=== PATIENT | male | born 2000 | race Caucasian/White ===

== ENCOUNTER 2021-01-26 06:35 | Emergency (ER) | payer OTHER ==
[2021-01-26] MEDS ORDERED: ONDANSETRON 4 MG (ODT) TAB ONE (08:07)
--- NOTE | 2021-01-26 08:33 | RAD REPORT ---
EXAM DESCRIPTION: RAD - Chest Single View - 01/26/2021 8:24 am CLINICAL HISTORY: COUGH COMPARISON: No comparisons FINDINGS: No evidence of edema or pneumonia. The heart size is within normal limits.No acute osseous abnormality. No significant pleural effusions or pneumothorax. IMPRESSION: No acute cardiopulmonary disease.
--- NOTE | 2021-01-26 09:36 | EDPHYS ---
Physician Documentation [facility] Name: Brent Ocampo Age: 21 yrs Sex: Male : 2000 Arrival Date: 01/26/2021 Time: 06:41 Bed DX1 Private MD: ED Physician Luiz Chakraborty HPI: 01/26 07:37 This 21 yrs old Male presents to ER via Ambulatory with complaints of rn Headache, Cough, Chest Pain, Vomiting. 07:37 The patient or guardian reports cough. Onset: The symptoms/episode began/occurred 3 rn day(s) ago. Severity of symptoms: At their worst the symptoms were mild, in the emergency department the symptoms are unchanged. Modifying factors: The symptoms are alleviated by nothing, the symptoms are aggravated by nothing. Associated signs and symptoms: Pertinent positives: sore throat, vomiting, headache. The patient has not experienced similar symptoms in the past. The patient has not recently seen a physician. Patient reports cough, congestion, headache, fatigue, vomiting for 3 days or so. Reports multiple sick contacts who were diagnosed with Covid. Patient vaccinated. Non-smoker, no chronic medical problems. Denies shortness of breath.. Historical: - Allergies: 07:11 No Known Allergies; ss - Home Meds: 07:11 None [Active]; ss - PMHx: 07:11 None; ss - PSHx: 07:11 None; ss - Immunization history:: Adult Immunizations up to date. - Social history:: Smoking status: Patient denies any tobacco usage or history of. - Family history:: not pertinent. - Hospitalizations: : No recent hospitalization is reported. ROS: 07:37 Constitutional: Positive for chills Eyes: Negative for injury, pain, redness, and learning coordinator, ENT: Positive for congestion and sore throat Neck: Negative for injury, swelling, Cardiovascular: Negative for chest pain, palpitations, and edema, Respiratory: Positive for cough, negative for shortness of breath Abdomen/GI: Positive for nausea and vomiting, negative for abdominal pain : Negative for injury, bleeding, discharge, and swelling, MS/Extremity: Negative for injury and deformity, Skin: Negative for injury, rash, and discoloration, Neuro: Positive for headache and generalized weakness. No focal neurological complaints 07:37 All other systems are negative. Exam: 07:37 Constitutional: This is a well developed, well nourished patient who is awake, alert, rn and in no acute distress. Head/Face: Normocephalic, atraumatic. Eyes: Pupils equal round and reactive to light, extra-ocular motions intact. Lids and lashes normal. Conjunctiva and sclera are non-icteric and not injected. Cornea within normal limits. Periorbital areas with no swelling, redness, or edema. ENT: No stridor Neck: Trachea midline, no thyromegaly, + non-tender cervical lymphadenopathy. Supple, full range of motion without nuchal rigidity, or vertebral point tenderness. No Meningismus. Cardiovascular: Regular rate and rhythm. No pulse deficits. Respiratory: No increased work of breathing, no retractions or nasal flaring. Abdomen/GI: Soft, non-tender Skin: Warm, dry MS/ Extremity: Pulses equal, no cyanosis. Neuro: Awake and alert, GCS 15 Vital Signs: 07:09 BP 153 / 95; Pulse 86; Resp 15; Temp 97.8(TE); Pulse Ox 98% on R/A; Weight 86.18 kg; ss Height 5 ft. 11 in. (180.34 cm); Pain 0/10; 07:09 Body Mass Index 26.50 (86.18 kg, 180.34 cm) ss MDM: 07:41 Patient medically screened. rn 07:48 Data interpreted: school bus monitor: Pulse oximetry: on room air is 98 %. Interpretation: rn normal. 08:33 Test interpretation: by ED physician or midlevel provider: plain radiologic studies, rn CXR neg for acute infiltrate or pneumothorax. 09:35 Differential Diagnosis: Bronchitis Upper Respiratory Infection Sinusitis Allergic rn Rhinitis Viral Syndrome Pneumonia Other Covid. Data reviewed: vital signs, nurses notes, lab test result(s), radiologic studies, plain films, and as a result, I will discharge patient. Counseling: I had a detailed discussion with the patient and/or guardian regarding: the historical points, exam findings, and any diagnostic results supporting the discharge/admit diagnosis, lab results, radiology results, the need for outpatient follow up, to return to the emergency department if symptoms worsen or persist or if there are any questions or concerns that arise at home. Special discussion: I discussed with the patient/guardian in detail that at this point there is no indication for admission to the hospital. It is understood, however, that if the symptoms persist or worsen the patient needs to return immediately for re-evaluation. 01/26 07:20 Order name: Strep; Complete Time: 08:32 rn 01/26 07:19 Order name: XRAY Chest (1 view); Complete Time: 08:35 rn 01/26 08:37 Order name: Throat Culture EDMS 01/26 09:22 Order name: SARS-COV-2 RT PCR; Complete Time: 09:35 EDMS Administered Medications: 07:53 Drug: Zofran (Ondansetron) 4 mg Route: PO; ss 08:15 Follow up: Response: No adverse reaction; Nausea is decreased ss Disposition Summary: 01/26/21 09:36 Discharge Ordered Location: Home rn Problem: new rn Symptoms: have improved rn Condition: Stable rn Diagnosis - Cough rn - Acute upper respiratory infection, unspecified rn Followup: rn - With: Private Physician - When: As needed - Reason: Recheck today's complaints, Re-evaluation by your physician Discharge Instructions: - Discharge Summary Sheet rn - Upper Respiratory Infection, Adult rn - Viral Respiratory Infection rn - Cough, Adult rn Forms: - Medication Reconciliation Form rn - Thank You Letter rn - Antibiotic internet media planner - Prescription Opioid Use rn Signatures: Dispatcher [employer] EDUT Luiz Chakraborty MD MD rn Smirch, Shelby, RN RN ss Corrections: (The following items were deleted from the chart) : 07:19 [email or web address] ordered. EDUT EDUT
--- NOTE | 2021-01-26 09:36 | ER ---
Nurse's Notes [facility] Name: Brent Ocampo Age: 21 yrs Sex: Male : 2000 Arrival Date: 01/26/2021 Time: 06:41 Bed DX1 Private MD: Diagnosis: Cough;Acute upper respiratory infection, unspecified Presentation: 01/26 07:09 Chief complaint: Patient states: headache, intermittent nausea and pain when coughing ss at times x 2 days. PT reports he is up to date with his COVID vaccinations, but at his place of employment, a lot of people are testing positive for COVID. Coronavirus screen: Client presents with at least one sign or symptom that may indicate coronavirus-19. Ebola Screen: Patient denies exposure to infectious person. Patient denies travel to an Ebola-affected area in the 21 days before illness onset. Initial Sepsis Screen: Does the patient meet any 2 criteria? No. Patient's initial sepsis screen is negative. Does the patient have a suspected source of infection? No. Patient's initial sepsis screen is negative. Risk Assessment: Do you want to hurt yourself or someone else? Patient reports no desire to harm self or others. Onset of symptoms was January 24, 2021. 07:09 Method Of Arrival: Ambulatory ss 07:09 Acuity: EMIL 4 ss Historical: - Allergies: 07:11 No Known Allergies; ss - Home Meds: 07:11 None [Active]; ss - PMHx: 07:11 None; ss - PSHx: 07:11 None; ss - Immunization history:: Adult Immunizations up to date. - Social history:: Smoking status: Patient denies any tobacco usage or history of. - Family history:: not pertinent. - Hospitalizations: : No recent hospitalization is reported. Screenin:00 Abuse screen: Denies threats or abuse. Denies injuries from another. Nutritional ss screening: No deficits noted. Tuberculosis screening: Never had TB. Fall Risk None identified. Assessment: 08:00 General: Behavior is calm, cooperative, Reports feeling ill for 1-2 days. Pain: ss Complains of pain in chest Pain currently is 0 out of 10 on a pain scale. Quality of pain is described as only when coughing. Neuro: Level of Consciousness is awake, alert, obeys commands, Oriented to person, place, time, situation. Cardiovascular: Capillary refill < 3 seconds is brisk in bilateral fingers Patient's skin is warm and dry. Respiratory: Airway is patent Respiratory effort is even, unlabored, Respiratory pattern is regular, symmetrical. GI: Reports nausea. EENT: Nares are clear Oral mucosa is moist. Derm: Skin is intact, is healthy with good turgor, Skin is dry, Skin is pink, warm \T\ dry. normal. Musculoskeletal: Circulation, motion, and sensation intact. Range of motion: intact in all extremities, Swelling absent. Vital Signs: 07:09 BP 153 / 95; Pulse 86; Resp 15; Temp 97.8(TE); Pulse Ox 98% on R/A; Weight 86.18 kg; ss Height 5 ft. 11 in. (180.34 cm); Pain 0/10; 07:09 Body Mass Index 26.50 (86.18 kg, 180.34 cm) ED Course: 06:41 Patient arrived in ED. bp1 07:11 Triage completed. ss 07:11 Arm band placed on right wrist. 07:16 Sree Rivas PA is PHCP. jr8 07:16 Luiz Chakraborty MD is Attending Physician. jr8 07:53 Maria Elena Marsh RN is Primary Nurse. ss 08:00 Patient has correct armband on for positive identification. Bed in low position. Call ss light in reach. 08:24 XRAY Chest (1 view) In Process Unspecified. EDMS 10:13 No provider procedures requiring assistance completed. Patient did not have IV access ss during this emergency room visit. Administered Medications: 07:53 Drug: Zofran (Ondansetron) 4 mg Route: PO; ss 08:15 Follow up: Response: No adverse reaction; Nausea is decreased ss Outcome: 09:36 Discharge ordered by . rn 10:13 Discharged to home ambulatory. ss 10:13 Condition: good 10:13 Discharge instructions given to patient, Instructed on discharge instructions, follow up and referral plans. Demonstrated understanding of instructions, follow-up care. 10:14 Patient left the ED. ss Signatures: Dispatcher [employer] EDMS Luiz Chakraborty MD MD rn Smirch, Shelby, RN RN Sree Rivas PA PA jr8 Gilda Abreu bp1
[2021-01-26 10:25] VITALS: BP 153/95; TEMP 97.8; O2SAT 98
== END 2021-01-26 10:14 | disposition home or self-care (01) ==
LOC: ER 06:35
DX: J06.9 Acute upper respiratory infection, unspecified (principal); Z20.822 Contact with and (suspected) exposure to COVID-19
CPT/HCPCS: 87070; 87081; 71045; 99283; U0003

== ENCOUNTER 2021-03-29 00:50 | Emergency (ER) | payer OTHER ==
--- NOTE | 2021-03-29 01:40 | ER ---
Nurse's Notes [facility] Name: Brent Ocampo Age: 21 yrs Sex: Male : 2000 Arrival Date: 03/29/2021 Time: : Bed 6 Private MD: Diagnosis: Fracture of clavicle Presentation: 03/29 01:19 Chief complaint: Patient states: patient presents to the ED c/o right clavicle pain. 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 patient has deformity to right clavicle with increased pain. Coronavirus screen: Vaccine status: Patient reports receiving the 2nd dose of the covid vaccine. At this time, the client does not indicate any symptoms associated with coronavirus-19. Ebola Screen: Patient negative for fever greater than or equal to 101.5 degrees Fahrenheit, and additional compatible Ebola Virus Disease symptoms Patient denies exposure to infectious person. Patient denies travel to an Ebola-affected area in the 21 days before illness onset. No symptoms or risks identified at this time. Initial Sepsis Screen: Does the patient meet any 2 criteria? No. Patient's initial sepsis screen is negative. Does the patient have a suspected source of infection? No. Patient's initial sepsis screen is negative. Risk Assessment: Do you want to hurt yourself or someone else? Patient reports no desire to harm self or others. Onset of symptoms was March 29, 2021. 01:19 Method Of Arrival: Ambulatory ms4 01:19 Acuity: EMIL 4 ms4 Triage Assessment: :22 General: Appears in no apparent distress. Behavior is calm, cooperative, appropriate ms4 for age. Pain: Complains of pain in right clavicle. Musculoskeletal: Circulation, motion, and sensation intact. Capillary refill Bony deformity noted of right clavicle Swelling present in right clavicle Tenderness present in right clavicle Reports pain in right clavicle. Injury Description: Deformity sustained to right clavicle. Historical: - Allergies: : No Known Allergies; ms4 - Home Meds: : None [Active]; ms4 - PMHx: : None; ms4 - Immunization history:: Adult Immunizations up to date, Client reports receiving the 2nd dose of the Covid vaccine, Last tetanus immunization: up to date. - Social history:: Smoking status: unknown. Screenin:23 Abuse screen: Denies threats or abuse. Denies injuries from another. Nutritional ms4 screening: No deficits noted. Tuberculosis screening: No symptoms or risk factors identified. Fall Risk None identified. Assessment: :23 Reassessment: Patient appears in no apparent distress at this time. No changes from ms4 previously documented assessment. Patient and/or family updated on plan of care and expected duration. Pain level reassessed. Patient is alert, oriented x 3, equal unlabored respirations, skin warm/dry/pink. General: Appears in no apparent distress. Behavior is calm, cooperative, appropriate for age. Pain: Complains of pain in right clavicle. Neuro: No deficits noted. Cardiovascular: No deficits noted. Respiratory: No deficits noted. Musculoskeletal: Bony deformity noted of right clavicle. Vital Signs: 01:19 BP 141 / 84; Pulse 95; Resp 18; Temp 98.3(O); Pulse Ox 98% on R/A; Weight 90.72 kg; ms4 Height 6 ft. 1 in. (185.42 cm); Pain 6/10; 01:19 Body Mass Index 26.39 (90.72 kg, 185.42 cm) ms4 ED Course: 01:01 Patient arrived in ED. cf2 01:02 Shannon Lawrence FNP-C is [facility]. kb 01:02 Pierre Ralph MD is Attending Physician. kb 01:21 Triage completed. ms4 01:23 Arm band placed on left wrist. ms4 01:24 No provider procedures requiring assistance completed. ms4 01:27 Shoulder Right (2 View) XRAY In Process Unspecified. EDMS 01:40 Clavicle Right XRAY Sent. ms4 01:48 Patient has correct armband on for positive identification. ms4 01:48 Patient did not have IV access during this emergency room visit. ms4 01:56 Clavicle Right XRAY In Process Unspecified. EDMS Administered Medications: No medications were administered Outcome: 01:38 Discharge ordered by . kb 01:47 Discharged to home ambulatory. ms4 01:47 Condition: stable 01:47 Discharge instructions given to patient, Instructed on discharge instructions, Demonstrated understanding of instructions, follow-up care, medications, Prescriptions given X 1. 01:48 Patient left the ED. ms4 Signatures: Dispatcher [employer] EDMS Shannon Lawrence FNP-C FNP-Ckb Sheyla Wiggins cf2 Lesa Penaloza, RN RN ms4
--- NOTE | 2021-03-29 01:40 | EDPHYS ---
Physician Documentation [facility] Name: Brent Ocampo Age: 21 yrs Sex: Male : 2000 Arrival Date: 03/29/2021 Time: 01: Bed 6 Private MD: ED Physician Pierre Ralph HPI: 03/29 01:07 This 21 yrs old Male presents to ER via Unassigned with complaints of kb Shoulder Injury, POSSIBLY DISLOCATED. 01:07 The patient or guardian complains of pain, that is acute. right clavicle. Context: The kb problem was sustained outdoors, resulted from a fall, while walking, The patient experiences decreased range of motion, The patient reports no obvious deformity. Onset: The symptoms/episode began/occurred just prior to arrival. Modifying factors: the symptoms are alleviated by nothing. The symptoms are aggravated by movement. Associated signs and symptoms: The patient has no apparent associated signs or symptoms. Severity of symptoms: At their worst the symptoms were moderate, in the emergency department the symptoms are unchanged. Treatment prior to arrival includes: no previous treatment. The patient has not experienced similar symptoms in the past. The patient has not recently seen a physician. Pt reports he tripped and fell onto curb. reports pain to right clavicle and decreased rom of right shoulder. Historical: - Allergies: : No Known Allergies; ms4 - Home Meds: : None [Active]; ms4 - PMHx: : None; ms4 - Immunization history:: Adult Immunizations up to date, Client reports receiving the 2nd dose of the Covid vaccine, Last tetanus immunization: up to date. - Social history:: Smoking status: unknown. ROS: 01:07 Constitutional: Negative for fever, chills, and weight loss. kb 01:07 MS/extremity: Positive for injury or acute deformity, pain, tenderness, of the right clavicle. 01:07 All other systems are negative. Exam: 01:07 Constitutional: This is a well developed, well nourished patient who is awake, alert, kb and in no acute distress. Head/Face: Normocephalic, atraumatic. ENT: Moist Mucous membranes Respiratory: Respirations even and unlabored. No increased work of breathing, no retractions or nasal flaring. Skin: Warm, dry with normal turgor. Normal color. Neuro: Awake and alert, GCS 15, oriented to person, place, time, and situation. Moves all extremities. Normal gait. Psych: Awake, alert, with orientation to person, place and time. Behavior, mood, and affect are within normal limits. 01:07 Musculoskeletal/extremity: Extremities: grossly normal except: noted in the right clavicle: pain, tenderness, ROM: limited active range of motion due to pain, in the right arm, Circulation is intact in all extremities. Sensation intact. Vital Signs: 01:19 BP 141 / 84; Pulse 95; Resp 18; Temp 98.3(O); Pulse Ox 98% on R/A; Weight 90.72 kg; ms4 Height 6 ft. 1 in. (185.42 cm); Pain 6/10; 01:19 Body Mass Index 26.39 (90.72 kg, 185.42 cm) ms4 MDM: 01:03 Patient medically screened. kb 01:06 Data reviewed: vital signs, nurses notes. Data interpreted: Pulse oximetry: on room air kb is 100 %. Interpretation: normal. 01:38 Counseling: I had a detailed discussion with the patient and/or guardian regarding: the kb historical points, exam findings, and any diagnostic results supporting the discharge/admit diagnosis, radiology results, the need for outpatient follow up, a orthopedic surgeon, to return to the emergency department if symptoms worsen or persist or if there are any questions or concerns that arise at home. 03/29 01:06 Order name: Shoulder Right (2 View) XRAY 03/29 01:26 Order name: Clavicle Right XRAY 03/29 01:28 Order name: Sling; Complete Time: 01:40 kb Administered Medications: No medications were administered Disposition: 07:37 Co-signature as Attending Physician, Pierre Ralph MD. [email or web address] Disposition Summary: 03/29/21 01:38 Discharge Ordered Location: Home Condition: Stable kb Diagnosis - Fracture of clavicle kb Followup: kb - With: Emergency Department - When: As needed - Reason: Worsening of condition Followup: kb - With: Private Physician - When: 2 - 3 days - Reason: Recheck today's complaints, Continuance of care, Re-evaluation by your physician Discharge Instructions: - Discharge Summary Sheet kb - Clavicle Fracture, [id number] kb Forms: - Medication Reconciliation Form kb - Work release form kb - Thank You Letter kb - Antibiotic Education kb - Prescription Opioid Use kb Prescriptions: - Diclofenac Sodium 75 mg Oral tablet,delayed release (DR/EC) - take 1 tablet by ORAL route 2 times per day As needed; 30 tablet; Refills: 0, kb Product Selection Permitted Signatures: Dispatcher [employer] Shannon Jacobo, Pierre Thakur MD MD 7 Lesa Penaloza RN RN ms4
[2021-03-29 01:52] VITALS: BP 141/84; TEMP 98.3; O2SAT 98
--- NOTE | 2021-03-29 11:42 | RAD REPORT ---
EXAM DESCRIPTION: RAD - Clavicle Right - 03/29/2021 1:56 am CLINICAL HISTORY: PAIN COMPARISON: No comparisons FINDINGS: Fracture of the midshaft of the right clavicle is seen with mild displacement and angulati on. No dislocation seen.
--- NOTE | 2021-03-29 11:44 | RAD REPORT ---
EXAM DESCRIPTION: RAD - Shoulder Right 2 View - 03/29/2021 1:27 am CLINICAL HISTORY: PAIN COMPARISON: No comparisons FINDINGS: Mildly angulated fracture of the midshaft of the right clavicle is present. No dislocation is evident.
== END 2021-03-29 01:48 | disposition home or self-care (01) ==
LOC: ER 00:50
DX: S42.011A Anterior displaced fracture of sternal end of right clavicle, initial encounter for closed fracture (principal); W01.198A Fall on same level from slipping, tripping and stumbling with subsequent striking against other object, initial encounter; Y93.01 Activity, walking, marching and hiking; Y92.480 Sidewalk as the place of occurrence of the external cause
CPT/HCPCS: 99283

== ENCOUNTER 2022-07-23 22:07 | Emergency (ER) | payer SELFPAY ==
[2022-07-23] MEDS ORDERED: IBUPROFEN 400 MG TAB ONE (23:11)
--- NOTE | 2022-07-24 00:33 | EDPHYS ---
Physician Documentation [facility] Name: Brent Ocampo Age: 22 yrs Sex: Male : 2000 Arrival Date: 07/23/2022 Time: 22:10 Bed 8 Private MD: ED Physician Minerva Crum HPI: 07/23 22:30 This 22 yrs old Male presents to ER via Ambulatory with complaints of Knee Injury. cp 22:30 The patient presents with an injury, pain, that is acute, swelling, tenderness. The cp complaints affect the medial aspect left lower knee. 22:30 Context: Patient reports he was skating rink when child that was unable to stop ran cp into him. Caused him to fall onto left side and injure left knee. Only c/o pain to left knee and swelling. Onset: The symptoms/episode began/occurred today. Associated signs and symptoms: The patient has no apparent associated signs or symptoms. Treatment prior to arrival includes: no previous treatment. Historical: - Allergies: 23:11 No Known Allergies; tw5 - Home Meds: 23:11 None [Active]; tw5 - PMHx: 23:11 None; tw5 - PSHx: 23:11 None; tw5 - Immunization history:: Flu vaccine is not up to date. - Social history:: Smoking status: Patient denies any tobacco usage or history of. ROS: 22:35 Constitutional: Negative for body aches, chills, fever, poor PO intake. cp 22:35 Eyes: Negative for injury, pain, redness, and discharge. cp 22:35 Neck: Negative for pain with movement, pain at rest, stiffness. 22:35 Cardiovascular: Negative for chest pain, palpitations. 22:35 Respiratory: Negative for cough, shortness of breath, wheezing. 22:35 Abdomen/GI: Negative for abdominal pain, nausea, vomiting, and diarrhea. 22:35 Back: Negative for pain at rest, pain with movement. 22:35 MS/extremity: Positive for ecchymosis, pain, swelling, tenderness, of the medial and anterior aspect left lower knee, Negative for decreased range of motion, deformity, paresthesias. 22:35 Neuro: Negative for altered mental status, headache, syncope, weakness. 22:35 All other systems are negative. Exam: 22:40 Constitutional: The patient appears in no acute distress, alert, awake, non-toxic, well cp developed, well nourished. 22:40 Head/Face: Normocephalic, atraumatic. cp 22:40 Neck: ROM/movement: is normal, is supple, without pain, no range of motions limitations. 22:40 Chest/axilla: Inspection: normal, Palpation: is normal, no crepitus, no tenderness. 22:40 Cardiovascular: Rate: normal, Rhythm: regular. 22:40 Respiratory: the patient does not display signs of respiratory distress, Respirations: normal, no use of accessory muscles, no retractions, labored breathing, is not present, Breath sounds: are clear throughout, no decreased breath sounds, no stridor, no wheezing. 22:40 Abdomen/GI: Inspection: abdomen appears normal, Palpation: abdomen is soft and non-tender, in all quadrants. 22:40 Back: pain, is absent, ROM is normal. 22:40 Musculoskeletal/extremity: Extremities: noted in the left knee: hematoma and swelling noted anterior and medial aspect left knee below patella, mild ecchymosis, tenderness to palpation, no gross joint effusion noted, full passive ROM, no laxity of ligaments appreciated. Vital Signs: 23:12 BP 124 / 85; Pulse 92; Resp 18; Temp 98.5; Pulse Ox 100% ; Weight 86.18 kg; Height 6 tw5 ft. 1 in. (185.42 cm); Pain 4/10; 18 00:59 BP 109 / 73; Pulse 73; Resp 18 S; Pulse Ox 98% on R/A; as6 07/23 23:12 Body Mass Index 25.07 (86.18 kg, 185.42 cm) tw5 MDM: 07/23 22:49 Patient medically screened. cp 23:00 Differential diagnosis: dislocation, closed fracture, ligament injury, knee effusion, cp dislocation. 07/24 00:31 Data reviewed: vital signs, nurses notes, radiologic studies, plain films. cp 00:31 Consideration of Admission/Observation Escalation of care including cp admission/observation considered. I considered the following discharge prescriptions or medication management in the emergency department Medications were administered in the Emergency Department. See MAR. Independent interpretation of the following test(s) in the Emergency Department X-Ray: My interpretation is left knee negative for fracture. Test considered but Not performed: CT: left knee. Counseling: I had a detailed discussion with the patient and/or guardian regarding: the historical points, exam findings, and any diagnostic results supporting the discharge/admit diagnosis, radiology results, the need for outpatient follow up, a orthopedic surgeon, to return to the emergency department if symptoms worsen or persist or if there are any questions or concerns that arise at home. Response to treatment: the patient's symptoms have mildly improved after treatment, and as a result, I will discharge patient. 07/23 22:22 Order name: XRAY Knee LEFT 3 view cp 07/24 00:31 Order name: Henry wrap-joint; Complete Time: 00:58 cp 07/24 00:31 Order name: Crutches; Complete Time: 00:58 cp Administered Medications: 07/23 23:11 Drug: Ibuprofen 800 mg Route: PO; tw5 07/24 00:59 Follow up: Response: No adverse reaction as6 Disposition Summary: 07/24/22 00:32 Discharge Ordered Location: Home cp Problem: new cp Symptoms: have improved cp Condition: Stable cp Diagnosis - Pain in left knee cp Followup: cp - With: Orlando Carrero MD - When: 2 - 3 days - Reason: Recheck today's complaints Discharge Instructions: - Discharge Summary Sheet cp - Elastic Bandage and RICE Therapy cp - How to Use a Knee Brace cp - Acute Knee Pain, Adult cp - Form - Excuse from Work, School, or Physical Activity cp Forms: - Medication Reconciliation Form cp - Thank You Letter cp - Antibiotic Education cp - Prescription Opioid Use cp Prescriptions: - Ibuprofen 800 mg Oral Tablet - take 1 tablet by ORAL route every 8 hours As needed take with food; 30 tablet; cp Refills: 0, Product Selection Permitted Addendum: 07/25/2022 06:28 I reviewed the patient's care provided by the Advanced Practice Provider and agree with s d2 the diagnosis and treatment plan. Signatures: Dispatcher [employer] EDSudheer Zee PA PA cp Wood, Tiffany tw5 Minerva Crum MD MD sd2 Ji Israel RN as6
--- NOTE | 2022-07-24 00:33 | ER ---
Nurse's Notes [facility] Name: Brent Ocampo Age: 22 yrs Sex: Male : 2000 Arrival Date: 07/23/2022 Time: 22:10 Bed 8 Private MD: Diagnosis: Pain in left knee Presentation: 07/23 23:12 Chief complaint: Patient states: "I was [place] [employer] [place] helping out a radha and a tw5 kid didn't know how to stop and ran into me. I fell on my left side. At first I thought I was fine, but the more I walked around the more knee started to hurt.". Coronavirus screen: Vaccine status: Patient reports receiving the 2nd dose of the covid vaccine. Ebola Screen: Patient negative for fever greater than or equal to 101.5 degrees Fahrenheit, and additional compatible Ebola Virus Disease symptoms Patient denies exposure to infectious person. Patient denies travel to an Ebola-affected area in the 21 days before illness onset. Initial Sepsis Screen: Does the patient meet any 2 criteria? No. Patient's initial sepsis screen is negative. Does the patient have a suspected source of infection? No. Patient's initial sepsis screen is negative. Risk Assessment: Do you want to hurt yourself or someone else? Patient reports no desire to harm self or others. Onset of symptoms was July 23, 2022 at 21:30. 23:12 Method Of Arrival: Ambulatory tw5 23:12 Acuity: EMIL 4 tw5 Triage Assessment: 23:12 General: Appears in no apparent distress. Behavior is appropriate for age. Pain: tw5 Complains of pain in left knee Pain currently is 4 out of 10 on a pain scale. Musculoskeletal: Range of motion: intact in all extremities. Historical: - Allergies: 23:11 No Known Allergies; tw5 - Home Meds: 23:11 None [Active]; tw5 - PMHx: 23:11 None; tw5 - PSHx: 23:11 None; tw5 - Immunization history:: Flu vaccine is not up to date. - Social history:: Smoking status: Patient denies any tobacco usage or history of. Screenin:14 [facility] ED Fall Risk Assessment (Adult) History of falling in the last 3 months, tw5 including since admission Yes- single mechanical fall (1 pt). Abuse screen: Denies threats or abuse. Denies injuries from another. Nutritional screening: No deficits noted. Tuberculosis screening: No symptoms or risk factors identified. Assessment: 23:14 General: Appears in no apparent distress. Behavior is calm, cooperative, appropriate tw5 for age. Derm: Skin is intact, is healthy with good turgor. Musculoskeletal: Range of motion: intact in all extremities. Vital Signs: 23:12 BP 124 / 85; Pulse 92; Resp 18; Temp 98.5; Pulse Ox 100% ; Weight 86.18 kg; Height 6 tw5 ft. 1 in. (185.42 cm); Pain 4/10; 07/24 00:59 BP 109 / 73; Pulse 73; Resp 18 S; Pulse Ox 98% on R/A; as6 07/23 23:12 Body Mass Index 25.07 (86.18 kg, 185.42 cm) tw5 ED Course: 07/23 22:10 Patient arrived in ED. jj6 22:14 Sudheer Pickens PA is PHCP. cp 22:15 Minerva Crum MD is Attending Physician. cp 22:52 XRAY Knee LEFT 3 view In Process Unspecified. EDMS 23:05 Debra Branch is Primary Nurse. tw5 23:12 Arm band placed on. tw5 23:14 Triage completed. tw5 23:15 Patient has correct armband on for positive identification. Call light in reach. Side tw5 rails up X 1. Pulse ox on. NIBP on. 18 00:32 Orlando Carrero MD is Referral Physician. cp 00:58 No provider procedures requiring assistance completed. Patient did not have IV access as6 during this emergency room visit. 00:58 Crutch training done. Henry wrap to left knee. as6 Administered Medications: 07/23 23:11 Drug: Ibuprofen 800 mg Route: PO; tw5 07/24 00:59 Follow up: Response: No adverse reaction as6 Medication: 07/23 23:14 VIS not applicable for this client. tw5 Outcome: 07/24 00:32 Discharge ordered by . cp 00:58 Discharged to home ambulatory, with crutches. as6 00:58 Condition: stable 00:58 Discharge instructions given to patient, Instructed on discharge instructions, follow up and referral plans. medication usage, crutch walking, Demonstrated understanding of instructions, follow-up care, medications, wound care, Prescriptions given X 1. 00:59 Patient left the ED. as6 Signatures: Dispatcher [employer] EDMS Sudheer Pickens PA PA cp Wood, Tiffany tw5 Kinsey Carroll jj6 Ji Israel, RN RN as6
[2022-07-24 01:20] VITALS: BP 124/85; TEMP 98.5; O2SAT 100
--- NOTE | 2022-07-26 12:19 | RAD REPORT ---
EXAM DESCRIPTION: RAD - Knee Left 3 View - 07/23/2022 10:48 pm CLINICAL HISTORY: Pain. COMPARISON: None. TECHNIQUE: Three views of the left knee: AP, oblique, and lateral radiographs. FINDINGS: No acute osseous abnormality is identified. Alignment is maintained. No evidence of suprap atellar joint effusion. Anterior knee soft tissue swelling. IMPRESSION: No acute osseous abnormality identified. Electronically signed by: Vilma Virk MD 07/23/2022 10:54 PM ARCHIVIST Due to temporary technical issues with the PACS/Fluency reporting system, reports are being signed by the in house radiologists without review as a courtesy to insure prompt reporting. The interpreting radiologist is fully responsible for the content of the report.
== END 2022-07-24 00:59 | disposition home or self-care (01) ==
LOC: ER 22:07
DX: M25.562 Pain in left knee (principal)
CPT/HCPCS: 99284

== ENCOUNTER 2023-02-06 17:52 | Emergency (ER) | payer SELFPAY ==
--- OUTSIDE RECORDS SUMMARY | 2023-02-06 17:54 | XMS REPORT | Continuity of Care Document ---
:2000 Author Organization [facility] t Address [address] [place] [address] [address] [place] [address] Care Team Providers Name Role Phone Selina Denny Primary Care Physician Mandi SAUNDERS Attending Clinician Unavailable Mandi Becerra Attending Clinician Problems This patient has no known problems. Allergies, Adverse Reactions, Alerts Allergy Allergy Status Severity Reaction(s) Onset Inactive Treating Comm ents Source Name Type Date Date Clinician NO KNOWN Drug Active Univers ALLERGIE Class ity of S [facility] Social History Social Habit Start Date Stop Date Quantity Comments Source History of Passive smoker [facility] tobacco use [facility] Exposure to 2022-09-07 2022-09-17 Not sure [facility] SARS-CoV-2 00:00:00 15:03:00 [facility] (event) [place] Alcohol intake 2022-09-17 2022-09-17 University 00:00:00 00:00:00 [facility] Sex Assigned At [birth year] Universit y of 00:00:00 00:00:00 [facility] Smoking Status Start Date Stop Date Source Never smoked tobacco [facility] Medications Ordered Filled Start Stop Current Ordering Indication Dosage Frequency Signature Comments Components Source Medication Medication Date Date Medication? Clinician (SIG) Name Name ondansetron No 4mg 4 mg, Univ ers (ZOFRAN-ODT 09-17 Oral, ity of ) 21:45: 20:46 ONCE, 1 [place] disintegrat 00 :00 dose, On Medi linette ing tablet Fri Branch 4 mg 09/17/22 at 1645, Routine ondansetron Yes [id number] 4mg Take 1 Univers 4 mg 4-14 tablet by ity of disintegrat 00:00: mouth [place] ing tablet 00 every 8 Medica l (eight) Branch hours as needed for Nausea and Vomiting (N/V). NAPROXEN Yes Take by Univer s (NAPROSYN 6-05 mouth. ity of ORAL) 08:23: [place] [facility] CYCLOBENZAP Yes Take by Uni vers RINE HCL 6-05 mouth. ity of (FLEXERIL 08:23: [place] ORAL) [address] [place] [address] Vital Signs Vital Name Observation Time Observation Value Comments Source Systolic blood 2022-09-17 20:05:00 150 [facility] Diastolic blood 2022-09-17 20:05:00 86 mm[facility] rate 2022-09-17 20:05:00 91 /min [facility] Body temperature 2022-09-17 20:05:00 37.11 Patti [facility] Respiratory rate 2022-09-17 20:05:00 16 /min [facility] Body weight 2022-09-17 20:05:00 81.647 kg [facility] Oxygen saturation in 2022-09-17 20:05:00 100 /min [facility] Arterial blood by [facility] Pulse oximetry Branch Procedures Procedure Date / Time Performed Performing Clinician Sourc e POCT GLUCOSE(AGE 2022-09-17 20:44:00 Mandi Saunders [facility] >30DAYS) Medical Branch POCT GLUCOSE 2022-09-17 20:42:00 Mandi Saunders [place] [facility] [place] (AUTOMATED) [facility] Encounters Start End Encounter Admission Attending Care Care Encounter Source Date/Time Date/Time Type Type Clinicians Facility Department ID 2022-09-17 2022-09-17 Emergency X Mandi SAUNDERS [facility] ERT [id number] Univers 15:05:00 15:59:00 ity [facility] 2022-09-17 2022-09-17 Emergency Mandi Saunders [facility] [id number] Univers 15:05:00 15:59:00 Mansi ANDERSON [id number] i ty smitha ROD [id number] [facility] [id number] [address] Results Test Description Test Time Test Comments Results Result Comments Source POCT GLUCOSE(AGE >30DAYS) 2022-09-17 20:44:00 Test Item Value Reference Range Interpretation Comme nts POCT Glu (age>30days) (test code = 3342) 89 mg/dL 70-110 Lab Interpretation (test code = 90153-3) Normal [facility]2022-09-17 20:42:47 Test Item Value Reference Range Interpretation Comments POCT GLU (test code = 1132153842) 89 mg/dL 70-110 Lab Interpretation (test code = Normal 03061-8) [facility]
--- NOTE | 2023-02-06 18:05 | ER ---
Nurse's Notes [facility] Name: Brent Ocampo Age: 23 yrs Sex: Male : 2000 Arrival Date: 02/06/2023 Time: 17:52 Bed DIS4 Private MD: Diagnosis: Burn of first degree of right lower leg Presentation: 02/06 18:03 Chief complaint: Patient states: burnt his right calf this afternoon. Coronavirus iw screen: At this time, the client does not indicate any symptoms associated with coronavirus-19. Ebola Screen: Patient negative for fever greater than or equal to 101.5 degrees Fahrenheit, and additional compatible Ebola Virus Disease symptoms Patient denies exposure to infectious person. Patient denies travel to an Ebola-affected area in the 21 days before illness onset. No symptoms or risks identified at this time. Initial Sepsis Screen: Does the patient meet any 2 criteria? No. Patient's initial sepsis screen is negative. Does the patient have a suspected source of infection? No. Patient's initial sepsis screen is negative. Risk Assessment: Do you want to hurt yourself or someone else? Patient reports no desire to harm self or others. Onset of symptoms was February 06, 2023. 18:03 Method Of Arrival: Ambulatory iw 18:03 Acuity: EMIL 4 iw Historical: - Allergies: 18:11 No Known Allergies; iw - Immunization history:: Adult Immunizations. - Social history:: Smoking status: . Screenin:13 [facility] ED Fall Risk Assessment (Adult) Score/Fall Risk Level 0 - 2 = Low Risk. Abuse iw screen: Denies threats or abuse. Denies injuries from another. Nutritional screening: No deficits noted. Tuberculosis screening: No symptoms or risk factors identified. Assessment: 18:15 General: Appears in no apparent distress. Behavior is calm, cooperative. Pain: Denies iw pain. Neuro: Level of Consciousness is awake, alert, obeys commands, Oriented to person, place, time, situation, Moves all extremities. Full function. Cardiovascular: Patient's skin is warm and dry. Respiratory: Respiratory effort is even, unlabored, Respiratory pattern is regular, symmetrical. Derm: Skin is healthy with good turgor. Musculoskeletal: Range of motion: intact in all extremities. Vital Signs: 18:10 BP 121 / 78; Pulse 79; Resp 16; Temp 98.2; Pulse Ox 98% on R/A; iw ED Course: 17:56 Patient arrived in ED. ts1 17:57 Shannon Lawrence FNP-C is [facility]. kb 17:57 Navya Maradiaga MD is Attending Physician. kb 18:02 Carlene Valerio, RN is Primary Nurse. iw 18:03 Triage completed. iw 18:30 Arm band placed on. iw 19:13 No provider procedures requiring assistance completed. Patient did not have IV access iw during this emergency room visit. 19:13 Patient has correct armband on for positive identification. Provided Education on: . iw Administered Medications: No medications were administered Medication: 19:13 VIS not applicable for this client. iw Outcome: 18:04 Discharge ordered by . kb 19:14 Discharged to home ambulatory. iw 19:14 Condition: good 19:14 Discharge instructions given to patient, Instructed on discharge instructions, follow up and referral plans. Demonstrated understanding of instructions, follow-up care. 19:14 Patient left the ED. iw Signatures: Shannon Lawrence FNP-C FNP-Carlene Laguna, RN RN iw Kia Pittman, PAS PAS ts1
--- NOTE | 2023-02-06 18:05 | EDPHYS ---
Physician Documentation [facility] Name: Brent Ocampo Age: 23 yrs Sex: Male : 2000 Arrival Date: 02/06/2023 Time: 17:52 Bed DIS4 Private MD: ED Physician Navya Maradiaga HPI: 02/06 18:08 This 23 yrs old Male presents to ER via Ambulatory with complaints of Leg Injury. kb 18:08 at work, is located on the right calf. Onset: The symptoms/episode began/occurred kb today, at 13:00. Burn type and severity: 1st degree:. Associated signs and symptoms: none. The patient did not suffer any apparent inhalation injury, The patient had no loss of consciousness. The patient has not experienced similar symptoms in the past. The patient has not recently seen a physician. Historical: - Allergies: 18:11 No Known Allergies; iw - Immunization history:: Adult Immunizations. - Social history:: Smoking status: . ROS: 18:07 Constitutional: Negative for fever, chills, and weight loss. kb 18:07 Skin: Positive for burn, of the right calf. 18:07 All other systems are negative. Exam: 18:07 Constitutional: This is a well developed, well nourished patient who is awake, alert, kb and in no acute distress. Head/Face: Normocephalic, atraumatic. ENT: Moist Mucous membranes Cardiovascular: Regular rate and rhythm with a normal S1 and S2. No gallops, murmurs, or rubs. No pulse deficits. Respiratory: Respirations even and unlabored. No increased work of breathing. Talking in full sentences MS/ Extremity: Pulses equal, no cyanosis. Neurovascular intact. Full, normal range of motion. Neuro: Awake and alert, GCS 15, oriented to person, place, time, and situation. Moves all extremities. Normal gait. 18:07 Skin: injury, burn(s), 1st degree burn injury covers approximately 1% of the total body surface area, and is located on the right calf. Vital Signs: 18:10 BP 121 / 78; Pulse 79; Resp 16; Temp 98.2; Pulse Ox 98% on R/A; iw MDM: 17:59 Patient medically screened. kb 18:07 Data reviewed: vital signs, nurses notes. kb 18:07 Differential diagnosis: 1st degree cuellar, 2nd degree cuellar, 3rd degree cuellar. kb Counseling: I had a detailed discussion with the patient and/or guardian regarding the historical points, exam findings, and any diagnostic results supporting the discharge/admit diagnosis, the need for outpatient follow up, a family practitioner, to return to the emergency department if symptoms worsen or persist or if there are any questions or concerns that arise at home. Administered Medications: No medications were administered Disposition Summary: 02/06/23 18:04 Discharge Ordered Location: Home kb Condition: Stable kb Diagnosis - Burn of first degree of right lower leg kb Followup: kb - With: Emergency Department - When: As needed - Reason: Worsening of condition Followup: kb - With: Private Physician - When: 2 - 3 days - Reason: Recheck today's complaints, Continuance of care, Re-evaluation by your physician Discharge Instructions: - Discharge Summary Sheet kb - Burn Care, Adult, [id number] kb Forms: - Work release form kb - Medication Reconciliation Form kb - Thank You Letter kb - Antibiotic Education kb - Prescription Opioid Use kb - Patient Portal Instructions kb - Leadership Thank You Letter kb Signatures: Shannon Lawrence FNP-Lilliana PIPER-Carlene Laguna, RN RN iw
[2023-02-06 19:24] VITALS: BP 121/78; TEMP 98.2; O2SAT 98
== END 2023-02-06 19:14 | disposition home or self-care (01) ==
LOC: ER 17:52
DX: T24.131A Burn of first degree of right lower leg, initial encounter (principal)
CPT/HCPCS: 99282

== ENCOUNTER 2023-03-12 07:11 | Emergency (ER) | payer SELFPAY ==
--- OUTSIDE RECORDS SUMMARY | 2023-03-12 07:14 | XMS REPORT | Continuity of Care Document ---
:2000 Author Organization [facility] t Address [address] [place] [address] [address] [place] [address] Care Team Providers Name Role Phone Selina Denny Primary Care Physician Mandi SAUNDERS Attending Clinician Unavailable Mandi Becerra Attending Clinician Problems This patient has no known problems. Allergies, Adverse Reactions, Alerts Allergy Allergy Status Severity Reaction(s) Onset Inactive Treating Comm ents Source Name Type Date Date Clinician NO KNOWN Drug Active Univers ALLERGIE Class ity of S [facility] Social History Social Habit Start Date Stop Date Quantity Comments Source History of Passive smoker [facility] tobacco use [facility] Exposure to 2022-09-07 2022-09-17 Not sure [facility] SARS-CoV-2 00:00:00 15:03:00 [facility] (event) [place] Alcohol intake 2022-09-17 2022-09-17 University 00:00:00 00:00:00 [facility] Sex Assigned At [birth year] Universit y of 00:00:00 00:00:00 [facility] Smoking Status Start Date Stop Date Source Never smoked tobacco [facility] Medications Ordered Filled Start Stop Current Ordering Indication Dosage Frequency Signature Comments Components Source Medication Medication Date Date Medication? Clinician (SIG) Name Name ondansetron No 4mg 4 mg, Univ ers (ZOFRAN-ODT 09-17 Oral, ity of ) 21:45: 20:46 ONCE, 1 [place] disintegrat 00 :00 dose, On Medi linette ing tablet Fri Branch 4 mg 4/14/23 at 1645, Routine ondansetron Yes [id number] 4mg Take 1 Univers 4 mg 4-14 tablet by ity of disintegrat 00:00: mouth [place] ing tablet 00 every 8 Medica l (eight) Branch hours as needed for Nausea and Vomiting (N/V). NAPROXEN Yes Take by Univer s (NAPROSYN 6-05 mouth. ity of ORAL) 08:23: [place] 49 [facility] Branch CYCLOBENZAP Yes Take by Uni vers RINE HCL 6-05 mouth. ity of (FLEXERIL 08:23: [place] ORAL) [address] [place] [address] Vital Signs Vital Name Observation Time Observation Value Comments Source Systolic blood 2022-09-17 20:05:00 150 mm[facility]Hg[facility] Diastolic blood 2022-09-17 20:05:00 86 mm[Hg] [facility] Heart rate 2022-09-17 20:05:00 91 /min [facility] Body temperature 2022-09-17 20:05:00 37.11 Patti [facility] Respiratory rate 2022-09-17 20:05:00 16 /min [facility] Body weight 2022-09-17 20:05:00 81.647 kg [facility] Oxygen saturation in 2022-09-17 20:05:00 100 /min [facility] Arterial blood by [facility] Pulse oximetry Branch Procedures Procedure Date / Time Performed Performing Clinician Sourc e POCT GLUCOSE(AGE 2022-09-17 20:44:00 Mandi Saunders [facility] >30DAYS) Medical Branch POCT GLUCOSE 2022-09-17 20:42:00 Mandi Saunders [facility] [place] (AUTOMATED) [facility] Encounters Start End Encounter Admission Attending Care Care Encounter Source Date/Time Date/Time Type Type Clinicians Facility Department ID 2022-09-17 2022-09-17 Emergency X Mandi SAUNDERS [facility] ERT [id number] Univers 15:05:00 15:59:00 ity [facility] 2022-09-17 2022-09-17 Emergency Mandi Saunders [facility] [id number] Univers 15:05:00 15:59:00 Mansi ANDERSON [id number] i ty smitha ROD [id number] [facility] [id number] [address] Results Test Description Test Time Test Comments Results Result Comments Source POCT GLUCOSE(AGE >30DAYS) 2022-09-17 20:44:00 Test Item Value Reference Range Interpretation Comme nts POCT Glu (age>30days) (test code = 3342) 89 mg/dL 70-110 Lab Interpretation (test code = 12046-8) Normal [facility]2022-09-17 20:42:47 Test Item Value Reference Range Interpretation Comments POCT GLU (test code = 2141830077) 89 mg/dL 70-110 Lab Interpretation (test code = Normal 08235-9) [facility]
--- NOTE | 2023-03-12 07:30 | ER ---
Nurse's Notes [facility] Name: Brent Ocampo Age: 23 yrs Sex: Male : 2000 Arrival Date: 03/12/2023 Time: 07:11 Bed 19 Private MD: Diagnosis: Neck pain Presentation: 03/12 07:24 Chief complaint: Right sided neck pain that radiates to right shoulder x 2 days. Denies hb injury but lifts heavy things at work daily. Coronavirus screen: At this time, the client does not indicate any symptoms associated with coronavirus-19. Ebola Screen: No symptoms or risks identified at this time. Initial Sepsis Screen: Does the patient meet any 2 criteria? No. Patient's initial sepsis screen is negative. Does the patient have a suspected source of infection? No. Patient's initial sepsis screen is negative. Risk Assessment: Do you want to hurt yourself or someone else? Patient reports no desire to harm self or others. Onset of symptoms was March 11, 2023. 07:24 Method Of Arrival: Ambulatory hb 07:24 Acuity: EMIL 4 hb Historical: - Allergies: 07:26 No Known Allergies; hb - Home Meds: 07:26 None [Active]; hb - PMHx: 07:26 None; hb - PSHx: 07:26 None; hb - Immunization history:: Adult Immunizations up to date. - Social history:: Smoking status: Patient denies any tobacco usage or history of. - Family history:: not pertinent. Screenin:30 [facility] ED Fall Risk Assessment (Adult) Score/Fall Risk Level 0 - 2 = Low Risk nj1 Oriented to surroundings, Maintained a safe environment, Hourly rounding (assess needs \T\ fall precautionary measures) done. Abuse screen: Denies threats or abuse. Denies injuries from another. Nutritional screening: No deficits noted. Tuberculosis screening: No symptoms or risk factors identified. Assessment: 07:28 General: Appears in no apparent distress. comfortable, Behavior is calm, cooperative, nj1 appropriate for age. Pain: Complains of pain in right trapezius Pain currently is 6 out of 10 on a pain scale. Alleviated by rest. Neuro: No deficits noted. Cardiovascular: No deficits noted. Respiratory: No deficits noted. Musculoskeletal: Reports pain in right trapezius since 3 days. Vital Signs: 07:24 BP 142 / 83; Pulse 84; Resp 16; Temp 97.9(O); Pulse Ox 99% on R/A; Weight 79.38 kg; hb Height 6 ft. 0 in. ; Pain 6/10; 07:43 BP 135 / 78; Pulse 73; Resp 17; Pulse Ox 99% ; Pain 6/10; nj1 07:58 Pain 4/10; nj1 07:24 Body Mass Index 23.73 (79.38 kg, 182.88 cm) hb 07:24 Pain Scale: Adult hb 07:43 Pain Scale: Adult nj1 07:58 Pain Scale: Adult nj1 ED Course: 07:14 Patient arrived in ED. mr 07:16 Jarred Coon MD is Attending Physician. rt 07:20 Adelaida Strickland, RN is Primary Nurse. nj1 07:26 Triage completed. hb 07:26 Arm band placed on. hb 07:30 Patient has correct armband on for positive identification. Bed in low position. Call nj1 light in reach. Provided Education on: call light, fall precautions. 07:30 No provider procedures requiring assistance completed. Patient did not have IV access nj1 during this emergency room visit. Administered Medications: 07:40 Drug: Ketorolac IM 15 mg IM once Route: IM; Site: right deltoid; nj1 07:58 Follow up: Pain 4/10 Adult; Response: No adverse reaction; Pain is decreased nj1 Medication: 07:30 VIS not applicable for this client. nj1 Outcome: 07:29 Discharge ordered by . rt 07:58 Discharged to home ambulatory, nj1 07:58 Condition: stable 07:58 Discharge instructions given to patient, Instructed on discharge instructions, follow up and referral plans. medication usage, Demonstrated understanding of instructions, follow-up care, medications, Prescriptions given X 1, 07:58 Patient left the ED. nj1 Signatures: Quiana Carter, Reg Reg mr PenalozaterLesli RN RN Jarred Coon MD MD rt Adelaida Strickland RN RN nj1
--- NOTE | 2023-03-12 07:30 | EDPHYS ---
Physician Documentation [facility] Name: Brent Ocampo Age: 23 yrs Sex: Male : 2000 Arrival Date: 03/12/2023 Time: 07:11 Bed 19 Private MD: ED Physician Jarred Coon HPI: 03/12 07:32 This 23 yrs old Male presents to ER via Ambulatory with complaints of Neck pain. rt 07:32 Patient presents to the ED with neck pain. Patient does lift heavy objects at work. rt This been going on for 2 days. Is worse when he sits still, turn side to the right. The pain is localized to the right superior trapezius muscle, denies discrete trauma. Denies other acute complaints at this time, symptoms are mild in severity, aching nature, nonradiating, no other aggravating leaving factors.. Historical: - Allergies: 07:26 No Known Allergies; hb - Home Meds: 07:26 None [Active]; hb - PMHx: 07:26 None; hb - PSHx: 07:26 None; hb - Immunization history:: Adult Immunizations up to date. - Social history:: Smoking status: Patient denies any tobacco usage or history of. - Family history:: not pertinent. ROS: 07:32 Constitutional: Negative for fever, chills, and weight loss, Cardiovascular: Negative rt for chest pain, palpitations, and edema, Respiratory: Negative for shortness of breath, cough, wheezing, and pleuritic chest pain, Abdomen/GI: Negative for abdominal pain, nausea, vomiting, diarrhea, and constipation, Skin: Negative for injury, rash, and discoloration, Neuro: Negative for headache, weakness, numbness, tingling, and seizure, Psych: Negative for depression, anxiety, suicide ideation, homicidal ideation, and hallucinations, 07:32 Neck: Positive for pain with movement, pain at rest, Exam: 07:32 Constitutional: This is a well developed, well nourished patient who is awake, alert, rt and in no acute distress. Head/Face: Normocephalic, atraumatic. Chest/axilla: Normal chest wall appearance and motion. Nontender with no deformity. No lesions are appreciated. Cardiovascular: Regular rate and rhythm with a normal S1 and S2. No gallops, murmurs, or rubs. Normal PMI, no JVD. No pulse deficits. Respiratory: Lungs have equal breath sounds bilaterally, clear to auscultation and percussion. No rales, rhonchi or wheezes noted. No increased work of breathing, no retractions or nasal flaring. Skin: Warm, dry with normal turgor. Normal color with no rashes, no lesions, and no evidence of cellulitis. MS/ Extremity: Pulses equal, no cyanosis. Neurovascular intact. Full, normal range of motion. Neuro: Awake and alert, GCS 15, oriented to person, place, time, and situation. Cranial nerves II-XII grossly intact. Motor strength 5/5 in all extremities. Sensory grossly intact. Cerebellar exam normal. Normal gait. Psych: Awake, alert, with orientation to person, place and time. Behavior, mood, and affect are within normal limits. 07:32 Neck: Tenderness over right superior trapezius muscle, no midline tenderness, forage of motion, no step-offs, Vital Signs: 07:24 BP 142 / 83; Pulse 84; Resp 16; Temp 97.9(O); Pulse Ox 99% on R/A; Weight 79.38 kg; hb Height 6 ft. 0 in. ; Pain 6/10; 07:43 BP 135 / 78; Pulse 73; Resp 17; Pulse Ox 99% ; Pain 6/10; nj1 07:58 Pain 4/10; nj1 07:24 Body Mass Index 23.73 (79.38 kg, 182.88 cm) hb 07:24 Pain Scale: Adult hb 07:43 Pain Scale: Adult nj1 07:58 Pain Scale: Adult nj1 MDM: 07:24 Patient medically screened. rt 07:32 Differential Diagnosis Neck strain, neck spasm. Data reviewed: vital signs, nurses rt notes. I considered the following discharge prescriptions or medication management in the emergency department Medications were administered in the Emergency Department. See MAR. Test considered but Not performed: MRI: No focal neurologic deficits, symptoms most likely muscular in nature, will start with conservative management, patient informed to follow-up for outpatient imaging should his pain persist.. Counseling: I had a detailed discussion with the patient and/or guardian regarding the historical points, exam findings, and any diagnostic results supporting the discharge/admit diagnosis, the need for outpatient follow up. Administered Medications: 07:40 Drug: Ketorolac IM 15 mg IM once Route: IM; Site: right deltoid; nj1 07:58 Follow up: Pain 09/13 Adult; Response: No adverse reaction; Pain is decreased nj1 Disposition Summary: 03/12/23 07:29 Discharge Ordered Notes: Location: Home rt Condition: Stable rt Diagnosis - Neck pain rt Followup: rt - With: Private Physician - When: 5 - 6 days - Reason: Discharge Instructions: - Discharge Summary Sheet hb - Neck Exercises rt Forms: - Work release form hb - Medication Reconciliation Form rt - Thank You Letter rt - Antibiotic Education rt - Prescription Opioid Use rt - Patient Portal Instructions rt - Leadership Thank You Letter rt Prescriptions: - Cyclobenzaprine 10 mg Oral tablet - take 1 tablet ORAL route every 8 hours As needed; 15 tablet; Refills: 0, rt Product Selection Permitted Signatures: Lesli Hernandez, RN RN Jarred Coon MD MD rt Adelaida Strickland RN RN nj1
[2023-03-12] MEDS ORDERED: KETOROLAC 30 MG/ML INJ ONE (07:49)
[2023-03-12 08:05] VITALS: TEMP 97.9; O2SAT 99
[2023-03-12 08:06] VITALS: BP 135/78
== END 2023-03-12 07:58 | disposition home or self-care (01) ==
LOC: ER 07:11
DX: M54.2 Cervicalgia (principal)
CPT/HCPCS: 96372; 99284

== ENCOUNTER 2023-03-21 07:03 | Emergency (ER) | payer SELFPAY ==
--- OUTSIDE RECORDS SUMMARY | 2023-03-21 07:15 | XMS REPORT | Continuity of Care Document ---
:2000 Author Organization [facility] t Address [address] [facility] [address] [place] [address] Care Team Providers Name Role Phone Selina Denny Primary Care Physician Mandi SAUNDERS Attending Clinician Unavailable Mandi Becerra Attending Clinician Problems This patient has no known problems. Allergies, Adverse Reactions, Alerts Allergy Allergy Status Severity Reaction(s) Onset Inactive Treating Comm ents Source Name Type Date Date Clinician NO KNOWN Drug Active Univers ALLERGIE Class ity of S [facility] Social History Social Habit Start Date Stop Date Quantity Comments Source History of Passive smoker [facility] tobacco use [facility] Exposure to 2022-09-07 2022-09-17 Not sure [facility] SARS-CoV-2 00:00:00 15:03:00 [facility] (event) [place] Alcohol intake 2022-09-17 2022-09-17 University 00:00:00 00:00:00 [facility] Sex Assigned At [birth year] Universit y of 00:00:00 00:00:00 [facility] Smoking Status Start Date Stop Date Source Never smoked tobacco [facility] Medications Ordered Filled Start Stop Current Ordering Indication Dosage Frequency Signature Comments Components Source Medication Medication Date Date Medication? Clinician (SIG) Name Name ondansetron No 4mg 4 mg, Univ ers (ZOFRAN-ODT 4-14 09-17 Oral, ity of ) 21:45: 20:46 ONCE, 1 [place] disintegrat 00 :00 dose, On Medi linette ing tablet Fri Branch 4 mg 4/14/23 at 1645, Routine ondansetron Yes [id number] 4mg Take 1 Univers 4 mg 4-14 tablet by ity of disintegrat 00:00: mouth [place] ing tablet 00 every 8 Medica l (eight) Branch hours as needed for Nausea and Vomiting (N/V). NAPROXEN Yes Take by Univer s (NAPROSYN 6-05 mouth. ity of ORAL) 08:23: [place] [address] [facility] CYCLOBENZAP Yes Take by Uni vers RINE HCL 6-05 mouth. ity of (FLEXERIL 08:23: [place] ORAL) [address] [place] [address] Vital Signs Vital Name Observation Time Observation Value Comments Source Systolic blood 2022-09-17 20:05:00 150 mm[facility]Hg[facility] Diastolic blood 2022-09-17 20:05:00 86 mm[Hg] [facility] Heart rate 2022-09-17 20:05:00 91 /min [facility] Body temperature 2022-09-17 20:05:00 37.11 Patti [facility] Respiratory rate 2022-09-17 20:05:00 16 /min [facility] Body weight 2022-09-17 20:05:00 81.647 kg [facility] Oxygen saturation in 2022-09-17 20:05:00 100 /min [facility] Arterial blood by [facility] Pulse oximetry Branch Procedures Procedure Date / Time Performed Performing Clinician Sourc e POCT GLUCOSE(AGE 2022-09-17 20:44:00 Mandi Saunders [facility] >30DAYS) Medical Branch POCT GLUCOSE 2022-09-17 20:42:00 Mandi Saunders Mansi Draper [facility] [place] (AUTOMATED) [facility] Encounters Start End Encounter Admission Attending Care Care Encounter Source Date/Time Date/Time Type Type Clinicians Facility Department ID 2022-09-17 2022-09-17 Emergency X Mandi SAUNDERS [facility] ERT [id number] Univers 15:05:00 15:59:00 ity [facility] 2022-09-17 2022-09-17 Emergency Mandi Saunders [facility] [id number] Univers 15:05:00 15:59:00 Mansi ANDERSON [id number] i ty smitha ROD [id number] [facility] [id number] [address] Results Test Description Test Time Test Comments Results Result Comments Source POCT GLUCOSE(AGE >30DAYS) 2022-09-17 20:44:00 Test Item Value Reference Range Interpretation Comme nts POCT Glu (age>30days) (test code = 3342) 89 mg/dL 70-110 Lab Interpretation (test code = 67406-8) Normal [facility]2022-09-17 20:42:47 Test Item Value Reference Range Interpretation Comments POCT GLU (test code = 5355285360) 89 mg/dL 70-110 Lab Interpretation (test code = Normal 51853-6) [facility]
--- NOTE | 2023-03-21 08:03 | EDPHYS ---
Physician Documentation [facility] Name: Brent Ocampo Age: 23 yrs Sex: Male : 2000 Arrival Date: 03/21/2023 Time: 07:03 Bed 12 Private MD: ED Physician Navya Maradiaga HPI: 03/21 08:00 This 23 yrs old Male presents to ER via Ambulatory with complaints of Rash. kb 08:00 The patient's rash thought to be caused by Contact allergy. The rash is located on the kb right upper arm and left posterior aspect of neck. The rash can be described as erythematous, papular. Onset: The symptoms/episode began/occurred 2 day(s) ago. Associated signs and symptoms: Pertinent positives: itching, Pertinent negatives: fever, Pain. Severity of symptoms: At their worst the symptoms were mild moderate in the emergency department the symptoms are unchanged. The patient has not experienced similar symptoms in the past. The patient has not recently seen a physician. Pt reports rash started on right arm and this morning spread to left neck. Historical: - Allergies: 07:26 No Known Allergies; ll1 - PMHx: 07:26 Asthma; ll1 - PSHx: 07:26 None; ll1 - Immunization history:: Adult Immunizations up to date. - Social history:: Smoking status: Patient denies any tobacco usage or history of. ROS: 08:00 Constitutional: Negative for fever, chills, and weight loss, kb 08:00 Skin: Positive for rash, 08:00 All other systems are negative, Exam: 08:00 Constitutional: This is a well developed, well nourished patient who is awake, alert, kb and in no acute distress. Head/Face: Normocephalic, atraumatic. ENT: Moist Mucous membranes Cardiovascular: Regular rate Respiratory: Respirations even and unlabored. No increased work of breathing. Talking in full sentences MS/ Extremity: Pulses equal, no cyanosis. Neurovascular intact. Full, normal range of motion. Neuro: Awake and alert, GCS 15, oriented to person, place, time, and situation. Moves all extremities. Normal gait. 08:00 Skin: rash a mild rash is noted, consistent with contact dermatitis, on the right upper arm and left posterior aspect of neck, Vital Signs: 07:25 BP 137 / 81; Pulse 75; Resp 16; Temp 98.2; Pulse Ox 100% ; Weight 81.65 kg; Height 6 ll1 ft. 0 in. ; Pain 0/10; 07:25 Body Mass Index 24.41 (81.65 kg, 182.88 cm) ll1 07:25 Pain Scale: Adult ll1 MDM: 07:55 Patient medically screened. kb 08:02 Differential diagnosis: impetigo, allergic reaction, parasite infection. Data reviewed: kb vital signs, nurses notes. Counseling: I had a detailed discussion with the patient and/or guardian regarding the historical points, exam findings, and any diagnostic results supporting the discharge/admit diagnosis, the need for outpatient follow up, a family practitioner, to return to the emergency department if symptoms worsen or persist or if there are any questions or concerns that arise at home. Administered Medications: 08:18 Drug: predniSONE PO 20 mg PO once Route: PO; ll1 08:18 Follow up: Response: No adverse reaction ll1 08:18 Drug: Famotidine PO 20 mg PO once Route: PO; ll1 08:19 Follow up: Response: No adverse reaction ll1 Disposition Summary: 03/21/23 08:03 Discharge Ordered Notes: Location: Home kb Condition: Stable kb Diagnosis - Unspecified contact dermatitis, unspecified cause kb Followup: kb - With: Emergency Department - When: As needed - Reason: Worsening of condition Followup: kb - With: Private Physician - When: 2 - 3 days - Reason: Recheck today's complaints, Continuance of care, Re-evaluation by your physician Discharge Instructions: - Contact Dermatitis kb - Discharge Summary Sheet ll1 Forms: - Medication Reconciliation Form kb - Thank You Letter kb - Patient Portal Instructions kb - Leadership Thank You Letter kb - Work release form ll1 Prescriptions: - Pepcid 20 mg Oral Tablet - take 1 tablet ORAL route every 12 hours for 5 days; 10 tablet; Refills: 0, kb Product Selection Permitted - Prednisone 20 mg Oral Tablet - take 1 tablet ORAL route once daily for 5 days; 5 tablet; Refills: 0, Product kb Selection Permitted Signatures: Shannon Lawrence, NOE PIPER-Albert Gaytan, RN RN 1
--- NOTE | 2023-03-21 08:03 | ER ---
Nurse's Notes [facility] Name: Brent Ocampo Age: 23 yrs Sex: Male : 2000 Arrival Date: 03/21/2023 Time: 07:03 Bed 12 Private MD: Diagnosis: Unspecified contact dermatitis, unspecified cause Presentation: 03/21 07:25 Chief complaint: Patient states: Rash to face/body for 2 days with itching. Coronavirus ll1 screen: Vaccine status: Patient reports receiving the 2nd dose of the covid vaccine. Client denies travel out of the [place] in the last 14 days. At this time, the client does not indicate any symptoms associated with coronavirus-19. Ebola Screen: Patient denies travel to an Ebola-affected area in the 21 days before illness onset. Initial Sepsis Screen: Does the patient meet any 2 criteria? No. Patient's initial sepsis screen is negative. Does the patient have a suspected source of infection? Yes: Skin breakdown/wound. Risk Assessment: Do you want to hurt yourself or someone else? Patient reports no desire to harm self or others. Onset of symptoms was March 20, 2023. 07:25 Method Of Arrival: Ambulatory ll1 07:25 Acuity: EMIL 4 ll1 Triage Assessment: 07:26 General: Appears in no apparent distress. Behavior is calm, cooperative, appropriate ll1 for age. Pain: Denies pain. Derm: Rash noted that is itchy, red, raised, vesicular, R arm L neck. Historical: - Allergies: 07:26 No Known Allergies; ll1 - PMHx: 07:26 Asthma; ll1 - PSHx: 07:26 None; ll1 - Immunization history:: Adult Immunizations up to date. - Social history:: Smoking status: Patient denies any tobacco usage or history of. Screenin:45 [facility] ED Fall Risk Assessment (Adult) Score/Fall Risk Level 0 - 2 = Low Risk ll1 Oriented to surroundings, Maintained a safe environment, Educated pt \T\ family on fall prevention, incl call for assistance when getting out of bed, Hourly rounding (assess needs \T\ fall precautionary measures) done. Abuse screen: Denies threats or abuse. Nutritional screening: No deficits noted. Tuberculosis screening: No symptoms or risk factors identified. Assessment: 07:40 Reassessment: No changes from previously documented assessment. Patient and/or family ll1 updated on plan of care and expected duration. Pain level reassessed. Patient is alert, oriented x 3, equal unlabored respirations, skin warm/dry/pink. given warm blanket. 08:18 Reassessment: No changes from previously documented assessment. Patient and/or family ll1 updated on plan of care and expected duration. Pain level reassessed. Patient is alert, oriented x 3, equal unlabored respirations, skin warm/dry/pink. Vital Signs: 07:25 BP 137 / 81; Pulse 75; Resp 16; Temp 98.2; Pulse Ox 100% ; Weight 81.65 kg; Height 6 ll1 ft. 0 in. ; Pain 0/10; 07:25 Body Mass Index 24.41 (81.65 kg, 182.88 cm) ll1 07:25 Pain Scale: Adult ll1 ED Course: 07:04 Patient arrived in ED. rg4 07:25 Albert Colvin, JOSUE is Primary Nurse. ll1 07:26 Triage completed. ll1 07:26 Arm band placed on Patient placed in an exam room, on a stretcher. ll1 07:45 Patient has correct armband on for positive identification. Bed in low position. Call ll1 light in reach. Side rails up X 1. Cardiac monitoring not applicable on this patient. 07:55 Shannon Lawrence FNP-C [facility]. kb 07:55 Navya Maradiaga MD is Attending Physician. kb 08:18 No provider procedures requiring assistance completed. Patient did not have IV access ll1 during this emergency room visit. 08:20 Provided Education on: n/a. ll1 Administered Medications: 08:18 Drug: predniSONE PO 20 mg PO once Route: PO; ll1 08:18 Follow up: Response: No adverse reaction ll1 08:18 Drug: Famotidine PO 20 mg PO once Route: PO; ll1 08:19 Follow up: Response: No adverse reaction ll1 Medication: 07:45 VIS not applicable for this client. ll1 Outcome: 08:03 Discharge ordered by . kb 08:19 Discharged to home ambulatory, ll1 08:19 Condition: stable 08:19 Discharge instructions given to patient, Instructed on discharge instructions, follow up and referral plans. medication usage, Demonstrated understanding of instructions, follow-up care, medications, Prescriptions given X 2, 08:20 Patient left the ED. ll1 Signatures: Shannon Lawrence FNP-C PATIENT REGISTRATION SUPERVISOR-Melissa Shankar rg4 Albert Colvin, RN RN ll1
[2023-03-21] MEDS ORDERED: predniSONE 20 MG TAB ONE (08:26)
[2023-03-21] MEDS ORDERED: FAMOTIDINE 20 MG TAB ONE (08:27)
[2023-03-21 08:34] VITALS: BP 137/81; TEMP 98.2; O2SAT 100
== END 2023-03-21 08:20 | disposition home or self-care (01) ==
LOC: ER 07:03
DX: L25.9 Unspecified contact dermatitis, unspecified cause (principal)
CPT/HCPCS: 99283; J7512

== ENCOUNTER 2023-03-23 06:52 | Emergency (ER) | payer SELFPAY ==
--- OUTSIDE RECORDS SUMMARY | 2023-03-23 06:55 | XMS REPORT | Continuity of Care Document ---
:[address] [facility] t Address [address] [place] [address] Care Team Providers Name Role Phone Selina Denny Primary Care Physician Mandi SAUNDERS Attending Clinician Unavailable Mandi Becerra Attending Clinician Problems This patient has no known problems. Allergies, Adverse Reactions, Alerts Allergy Allergy Status Severity Reaction(s) Onset Inactive Treating Comm ents Source Name Type Date Date Clinician NO KNOWN Drug Active Univers ALLERGIE Class ity of [facility] Social History Social Habit Start Date Stop Date Quantity Comments Source History of Passive smoker [facility] tobacco use [facility] Exposure to 2022-09-07 2022-09-17 Not sure [facility] SARS-CoV-2 00:00:00 15:03:00 [facility] (event) [place] Alcohol intake 2022-09-17 2022-09-17 University 00:00:00 00:00:00 [facility] Sex Assigned At [birth year] Universit y of 00:00:00 00:00:00 [facility] Smoking Status Start Date Stop Date Source Never smoked tobacco [facility] Medications Ordered Filled Start Stop Current Ordering Indication Dosage Frequency Signature Comments Components Source Medication Medication Date Date Medication? Clinician (SIG) Name Name ondansetron No 4mg 4 mg, Univ ers (ZOFRAN-ODT 4-14 09-17 Oral, ity of ) 21:45: 20:46 ONCE, 1 [place] disintegrat 00 :00 dose, On Medi linette ing tablet Fri Branch 4 mg 4/14/23 at 1645, Routine ondansetron Yes [id number] 4mg Take 1 Univers 4 mg 4-14 tablet by ity of disintegrat 00:00: mouth [place] ing tablet 00 every 8 Medica l (eight) Branch hours as needed for Nausea and Vomiting (N/V). NAPROXEN Yes Take by Univer s (NAPROSYN 6-05 mouth. ity of ORAL) 08:23: [place] [facility] CYCLOBENZAP Yes Take by Uni vers RINE HCL 6-05 mouth. ity of (FLEXERIL 08:23: [place] ORAL) [address] [place] [address] Vital Signs Vital Name Observation Time Observation Value Comments Source Systolic blood 2022-09-17 20:05:00 150 [facility] Diastolic blood 2022-09-17 20:05:00 86 mm[facility]Hg[facility] Heart rate 2022-09-17 20:05:00 91 /min [facility] Body temperature 2022-09-17 20:05:00 37.11 [facility] Respiratory rate 2022-09-17 20:05:00 16 /min [facility] Body weight 2022-09-17 20:05:00 81.647 kg [facility] Oxygen saturation in 2022-09-17 20:05:00 100 /min [facility] Arterial blood by [facility] Pulse oximetry Branch Procedures Procedure Date / Time Performed Performing Clinician Sourc e POCT GLUCOSE(AGE 2022-09-17 20:44:00 Mandi Saunders [facility] >30DAYS) Medical Branch POCT GLUCOSE 2022-09-17 20:42:00 Mandi Saunders [place] [facility] [place] (AUTOMATED) [facility] Encounters Start End Encounter Admission Attending Care Care Encounter Source Date/Time Date/Time Type Type Clinicians Facility Department ID 2022-09-17 2022-09-17 Emergency X Mandi SAUNDERS [facility] ERT [id number] Univers 15:05:00 15:59:00 ity [facility] 2022-09-17 2022-09-17 Emergency Mandi Saunders [facility] [id number] Univers 15:05:00 15:59:00 [place] AND[place] [id number] i ty smitha ROD [id number] [facility] [id number] [address] Results Test Description Test Time Test Comments Results Result Comments Source POCT GLUCOSE(AGE >30DAYS) 2022-09-17 20:44:00 Test Item Value Reference Range Interpretation Comme nts POCT Glu (age>30days) (test code = 3342) 89 mg/dL 70-110 Lab Interpretation (test code = 79677-2) Normal [facility]2022-09-17 20:42:47 Test Item Value Reference Range Interpretation Comments POCT GLU (test code = 2147129021) 89 mg/dL 70-110 Lab Interpretation (test code = Normal 33742-2) [facility]
--- NOTE | 2023-03-23 07:37 | EDPHYS ---
Physician Documentation [facility] Name: Brent Ocampo Age: 23 yrs Sex: Male : 2000 Arrival Date: 03/23/2023 Time: 06:52 Bed 7 Private MD: ED Physician Jarred Coon HPI: 03/23 07:39 This 23 yrs old Male presents to ER via Ambulatory with complaints of Rash. rt 09:10 Patient presents to the ED with a rash to the right upper extremity, left side of the rt neck is been present for about 4 days. She was seen in the ED about 2 days ago, prescribed prednisone. He states that the prednisone admission did not improve the symptoms. He reports that yesterday he developed a arianna-colored discharge as well as honeycombing to the rash. Denies other acute complaints at this time, symptoms are moderate severity, no other aggravating or elevating factors.. Historical: - Allergies: 07:11 No Known Allergies; ko1 - PMHx: 07:11 Asthma; ko1 - Immunization history:: Adult Immunizations up to date. - Social history:: Smoking status: Patient denies any tobacco usage or history of. ROS: 09:10 Constitutional: Negative for fever, chills, and weight loss, Cardiovascular: Negative rt for chest pain, palpitations, and edema, Respiratory: Negative for shortness of breath, cough, wheezing, and pleuritic chest pain, Abdomen/GI: Negative for abdominal pain, nausea, vomiting, diarrhea, and constipation, MS/Extremity: Negative for injury and deformity, Neuro: Negative for headache, weakness, numbness, tingling, and seizure, Psych: Negative for depression, anxiety, suicide ideation, homicidal ideation, and hallucinations, 09:10 Skin: Positive for erythema, rash, Exam: 09:10 Constitutional: This is a well developed, well nourished patient who is awake, alert, rt and in no acute distress. Head/Face: Normocephalic, atraumatic. Chest/axilla: Normal chest wall appearance and motion. Nontender with no deformity. No lesions are appreciated. Cardiovascular: Regular rate and rhythm with a normal S1 and S2. No gallops, murmurs, or rubs. Normal PMI, no JVD. No pulse deficits. Respiratory: Lungs have equal breath sounds bilaterally, clear to auscultation and percussion. No rales, rhonchi or wheezes noted. No increased work of breathing, no retractions or nasal flaring. Abdomen/GI: Soft, non-tender, with normal bowel sounds. No distension or tympany. No guarding or rebound. No evidence of tenderness throughout. MS/ Extremity: Pulses equal, no cyanosis. Neurovascular intact. Full, normal range of motion. Neuro: Awake and alert, GCS 15, oriented to person, place, time, and situation. Cranial nerves II-XII grossly intact. Motor strength 5/5 in all extremities. Sensory grossly intact. Cerebellar exam normal. Normal gait. Psych: Awake, alert, with orientation to person, place and time. Behavior, mood, and affect are within normal limits. 09:10 Skin: Impetiginous rash to the right upper arm noted, impetiginous rash to the left side of the neck, no obvious abscess.. Vital Signs: 07:09 BP 122 / 89; Pulse 70; Resp 16; Temp 98; Pulse Ox 100% ; ko1 07:53 BP 127 / 74; Pulse 72; Resp 16; Pulse Ox 100% ; ko1 MDM: 07:23 Patient medically screened. rt 09:10 Differential diagnosis: Impetigo, cellulitis, dermatitis. Data reviewed: vital signs, rt nurses notes. Test considered but Not performed: Labs: Stable vital signs, labs not indicated.. Counseling: I had a detailed discussion with the patient and/or guardian regarding the historical points, exam findings, and any diagnostic results supporting the discharge/admit diagnosis, the need for outpatient follow up. 03/23 07:32 [place] [facility]: cover bacroban with nonadherant dressing; Complete Time: 07:40 rt Administered Medications: 07:42 Drug: Cephalexin PO 500 mg PO once Route: PO; mb9 07:43 Drug: Mupirocin Topical Ointment 2 % 1 application Topical once Route: Topical; Site: mb9 right upper arm; Disposition Summary: 03/23/23 07:36 Discharge Ordered Notes: Location: Home rt Problem: new rt Symptoms: are unchanged rt Condition: Stable rt Diagnosis - Impetigo, unspecified rt Followup: rt - With: Private Physician - When: 2 - 3 days - Reason: Discharge Instructions: - Discharge Summary Sheet rt - Impetigo, Adult rt Forms: - Work release form rt - Medication Reconciliation Form rt - Thank You Letter rt - Antibiotic Education rt - Prescription Opioid Use rt - Patient Portal Instructions rt - Leadership Thank You Letter rt Prescriptions: - mupirocin 2 % Topical ointment - apply 1 application TOPICAL route 3 times per day disp qs for 7 days; 1 Each; rt Refills: 0, Product Selection Permitted - Cephalexin 500 mg Oral Capsule - take 1 capsule ORAL route every 6 hours for 10 days; 40 capsule; Refills: 0, rt Product Selection Permitted Signatures: Meg Bell, RN RN ko1 Quiana Gibson RN RN mb9 Jarred Coon MD MD rt
--- NOTE | 2023-03-23 07:37 | ER ---
Nurse's Notes [facility] Name: Brent Ocampo Age: 23 yrs Sex: Male : 2000 Arrival Date: 03/23/2023 Time: 06:52 Bed 7 Private MD: Diagnosis: Impetigo, unspecified Presentation: 03/23 07:09 Chief complaint: Patient states: rash to right arm, was seen and put on prednisone and ko1 pepcid, couldn't take the prednisone "it messes with me" and it seems to be getting worse. Coronavirus screen: At this time, the client does not indicate any symptoms associated with coronavirus-19. Ebola Screen: No symptoms or risks identified at this time. Initial Sepsis Screen: Does the patient meet any 2 criteria? No. Patient's initial sepsis screen is negative. Does the patient have a suspected source of infection? No. Patient's initial sepsis screen is negative. Risk Assessment: Do you want to hurt yourself or someone else? Patient reports no desire to harm self or others. Onset of symptoms is unknown. 07:09 Method Of Arrival: Ambulatory ko1 07:09 Acuity: EMIL 4 ko1 Triage Assessment: 07:11 General: Appears in no apparent distress. Behavior is calm, cooperative, appropriate ko1 for age. Pain: Denies pain. Historical: - Allergies: 07:11 No Known Allergies; ko1 - PMHx: 07:11 Asthma; ko1 - Immunization history:: Adult Immunizations up to date. - Social history:: Smoking status: Patient denies any tobacco usage or history of. Screenin:[address] [facility] ED Fall Risk Assessment (Adult) History of falling in the last 3 months, ko1 including since admission No falls in past 3 months (0 pts) Confusion or Disorientation No (0 pts) Intoxicated or Sedated No (0 pts) Impaired Gait No (0 pts) Mobility Assist Device Used No (0 pt) Altered Elimination No (0 pt) Score/Fall Risk Level 0 - 2 = Low Risk Oriented to surroundings, Maintained a safe environment, Educated pt \\T\\ family on fall prevention, incl call for assistance when getting out of bed, Assessed \\T\\ reinforced patient's understanding of fall precautions, Provided non-skid footwear, Hourly rounding (assess needs \\T\\ fall precautionary measures) done, Used ambulatory aids as needed (educated on \\T\\ assisted with), Used gait belt as appropriate. Abuse screen: Denies threats or abuse. Denies injuries from another. Nutritional screening: No deficits noted. Tuberculosis screening: No symptoms or risk factors identified. Assessment: 07:12 Neuro: No deficits noted. Cardiovascular: No deficits noted. Respiratory: No deficits ko1 noted. GI: No deficits noted. : No deficits noted. EENT: No deficits noted. Derm: Rash noted that is draining clear fluid, red, on right bicep Reports itching. Musculoskeletal: No deficits noted. Vital Signs: 07:09 BP 122 / 89; Pulse 70; Resp 16; Temp 98; Pulse Ox 100% ; ko1 07:53 BP 127 / 74; Pulse 72; Resp 16; Pulse Ox 100% ; ko1 ED Course: 06:57 Patient arrived in ED. gm2 07:02 Jarred Coon MD is Attending Physician. rt 07:09 Meg Bell, JOSUE is Primary Nurse. ko1 07:11 Triage completed. ko1 07:11 Arm band placed on right wrist. Patient placed on a stretcher, on pulse oximetry. ko1 07:12 Patient has correct armband on for positive identification. Bed in low position. Call ko1 light in reach. Provided Education on: na. Pulse ox on. NIBP on. Door closed. Noise minimized. Lights dimmed. 07:53 No provider procedures requiring assistance completed. Patient did not have IV access ko1 during this emergency room visit. Wound care: to rash located on right arm and right bicep was cleaned with soap and water, dressed with Kerlix, mupirocin and nonadherent dressing, wrapped with kerlix and tape. Administered Medications: 07:42 Drug: Cephalexin PO 500 mg PO once Route: PO; mb9 07:43 Drug: Mupirocin Topical Ointment 2 % 1 application Topical once Route: Topical; Site: mb9 right upper arm; Medication: 07:53 VIS not applicable for this client. ko1 Outcome: 07:36 Discharge ordered by . rt 07:54 Discharged to home ambulatory, ko1 07:54 Condition: stable 07:54 Discharge instructions given to patient, family, Instructed on discharge instructions, follow up and referral plans. medication usage, wound care, Demonstrated understanding of instructions, follow-up care, medications, wound care, Prescriptions given X 2 07:55 Patient left the ED. ko1 Signatures: Meg Bell RN RN ko1 Quiana Gibson RN RN mb9 Jarred Coon MD MD rt Monique [place] 2
[2023-03-23] MEDS ORDERED: CEPHALEXIN 250 MG CAP ONE (07:52)
[2023-03-23] MEDS ORDERED: MUPIROCIN 2% OINT 22GM TUBE TOP ONE (07:52)
[2023-03-23 08:02] VITALS: TEMP 98; O2SAT 100
[2023-03-23 08:03] VITALS: BP 127/74
== END 2023-03-23 07:55 | disposition home or self-care (01) ==
LOC: ER 06:52
DX: L01.00 Impetigo, unspecified (principal)